=== PATIENT | male | born 1965 | race Hispanic/Latino ===

== ENCOUNTER 2017-06-18 15:03 | Outpatient (CLI) | payer OTHER | END 2017-06-18 15:04 | disposition home or self-care (01) | LOC: LABBT 15:03 | PROVIDERS: ATTEND Specialist | DX: Z01.818 Encounter for other preprocedural examination (principal); K42.9 Umbilical hernia without obstruction or gangrene ==

== ENCOUNTER 2017-06-20 08:40 | Day surgery (SDC) | payer OTHER ==
[2017-06-18 15:14] VITALS: BMI 31.0
--- NOTE | 2017-06-18 16:52 | HP ---
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 A coughing bothe rs him and physical activity bothers him. Plan is to repair this possibly using mesh pending operati ve findings and size of the fascial defect. ALLERGIES: None. TOBACCO: None. ALCOHOL: Rarely. PAST SURGICAL HISTORY: Left knee arthroscopy. PAST MEDICAL HISTORY: Noncontributory. REVIEW OF SYSTEMS: Ten point noncontributory. PHYSICAL EXAMINATION: VITAL SIGNS: Weight 207 pounds, 66 inches, 33 BMI, blood pressure 134/79, pulse 79, and temperature 99.1 degrees. HEAD, EARS, EYES, NOSE AND THROAT: Unremarkable. LUNGS: Clear to auscultation. CARDIAC: Regular rate and rhythm without murmur or gallop. ABDOMEN: Soft, nontender. Umbilical hernia present. I cannot completely reduce it, it is slightly tender. EXTREMITIES: Unremarkable. ASSESSMENT AND PLAN: Umbilical hernia. Plan repair, possibly using mesh. Risks of infection, bleed ing, reoperation, recurrence of hernia were discussed. He consents. He consents to use of mesh if i ndicated.
[2017-06-20] MEDS ORDERED: Ketorolac Tromethamine 30 MG/ML VIAL ONE (10:38)
[2017-06-20] MEDS ORDERED: CEFAZOLIN/Water 2 GM/20 ML SYRINGE ONE (10:38)
[2017-06-20 11:03] LABS: #Eosinphils 0.1 thou/uL (0.0-0.7); #Lymphocytes 1.1 thou/uL (1.20-3.40); #Monocytes 0.6 thou/uL (0.11-0.59); #Neutrophils 3.5 thou/uL (1.40-6.50); %Basophils 0.7 % (0.0-1.0); %Eosinophils 1.4 % (0.0-10.0); %Monocytes 11.2 % (0.0-10.0); Hematocrit 47.9 % (42.0-52.0); Mean Platelet Volume 6.7 fL (7.4-10.4); Red Blood Cell (RBC) Count 4.85 mill/uL (4.70-6.10); White Blood Cell (WBC) Count 5.4 thou/uL (4.8-10.8)
[2017-06-20 11:20] LABS: Anion Gap 11 mmol/L (10-20); BUN (Urea Nitrogen) 18 mg/dL (8.4-25.7); Calc. Creatinine Clearance 103 mL/min (70-130); Calcium 9.7 mg/dL (7.8-10.44); Carbon Dioxide 28 mmol/L (22-29); Chloride 101 mmol/L (98-107); Estimated GFR-MDRD 68
[2017-06-20] MEDS ORDERED: Fentanyl 100 MCG/2 ML VIAL ONE ×3 (12:27→14:12)
[2017-06-20] MEDS ORDERED: Midazolam HCl 2 mg/2 ml Vial ONE (12:27)
[2017-06-20] MEDS ORDERED: Bupivacaine/Epinephrine 0.25% 30 ML VIAL ONE (12:29)
[2017-06-20] MEDS ORDERED: Lidocaine 2% PF 5 ML VIAL ONE (12:47)
--- NOTE | 2017-06-20 13:34 | OP ---
DATE OF SURGERY: 06/20/2017 PREOPERATIVE DIAGNOSES: Umbilical hernia, incarcerated with omentum and preperitoneal fat. POSTOPERATIVE DIAGNOSES: Umbilical hernia, incarcerated with omentum and preperitoneal fat. PROCEDURE PERFORMED: Umbilical hernia repair with 4.3 cm PVP mesh and Proceed ventral patch. SURGEON: Dr. Solomon Domingo ANESTHESIA: General. Local 0.25% Marcaine with epinephrine, 30 mL. PROCEDURE IN DETAIL: Patient taken to the operating room where under general anesthesia, abdomen was prepared with ChloraPrep, draped in routine fashion. Local anesthetic infiltrated into skin and sub cutaneous tissue about the operative site. Infraumbilical incision made and carried down through the skin and subcutaneous tissue. Umbilical hernia contents identified, excised using the cautery. Her re contents consisting of fat incarcerated. Fascial edges identified and preperitoneal space dissec emiliano free. Hernia defect was approximately 2.5 to 3 cm. PVP mesh inserted, controlled with straps an d fascia approximated [id number] fashion with interrupted 0 PDS pop offs, incorporated mesh into the fascial approximation and straps removed. Subcutaneous tissues approximated with 3-0 Monocryl, umbilical skin had to be excised at the umbilicus due to the thinned out area with the defect. Skin approximated with continuous subcuticular suture of 4-0 Monocryl and DermaGlue applied. The patient tolerated the procedure well.
[2017-06-20] MEDS ORDERED: Propofol 200 MG/20 ML VIAL ONE (16:04)
[2017-06-20] MEDS ORDERED: Dexamethasone 20 MG/5 ML VIAL ONE (16:04)
[2017-06-20] MEDS ORDERED: Lidocaine 1% PF 5 ML VIAL ONE (16:04)
[2017-06-20] MEDS ORDERED: Ondansetron HCl/PF 4 MG/2 ML Vial ONE (16:04)
[2017-06-20] MEDS ORDERED: Glycopyrrolate 0.2 MG/ML 5 ML SYRINGE ONE (16:04)
== END 2017-06-20 15:45 | disposition home or self-care (01) ==
LOC: SDC 08:40
PROVIDERS: ATTEND Specialist
PROC: 0WUF0JZ Supplement Abdominal Wall with Synthetic Substitute, Open Approach (ICD-10-PCS; principal; 2017-06-20)
DX: K42.0 Umbilical hernia with obstruction, without gangrene (principal); Z98.890 Other specified postprocedural states
CPT/HCPCS: 36415; 80048; 85025; 93005; 93010; 96374; C1781; J0131; J1100; J1885; J2001; J2250; J2405; J2704; J3010

== ENCOUNTER 2018-09-24 14:46 | Outpatient (CLI) | payer OTHER ==
[~2018-09-24 14:46] MED LIST: Iopamidol 370 76% 100 ML VIAL ONE; Iopamidol 370 76% 50 ML VIAL FS ONE
--- NOTE | 2018-09-24 18:22 | CT ---
CT ABDOMEN WITH CONTRAST CT PELVIS WITH CONTRAST: 09/24/18 HISTORY: 53-year-old male with left lower quadrant abdominal pain, R10.32 and left upper quadrant abdominal pa in, R10.12. Rule out inguinal hernia. TECHNIQUE: IV injection of iodinated contrast media: 100 mL Isovue 370. Oral contrast media: PO Isovue. FINDINGS: Liver: No focal solid mass. Spleen: No splenomegaly. Pancreas: No mass or surrounding fat stranding. Adrenals: No mass. Kidneys: No hydronephrosis or enhancement abnormalities. Ureters: No dilation. Bladder: No pathology identified. Abdominal aorta: No aneurysm. Small bowel: No dilation. Colon: No adjacent fat stranding. Appendix: No dilation or adjacent fat stranding. Free air: None. Free fluid: None. There is no inguinal, ventral, or spigelian hernia. Mildly prominent lymph nodes are present in the inguinal canals just deep to the abdominal wall withi n the abdominal cavity. IMPRESSION: No major pathology identified. katiuska [] POS: ESTEBAN
== END 2018-09-24 14:47 | disposition home or self-care (01) ==
LOC: CT 14:46
PROVIDERS: ATTEND Physician Assistant
DX: R10.32 Left lower quadrant pain (principal); R10.12 Left upper quadrant pain
CPT/HCPCS: 74177; 80053; 85025; Q9967